=== PATIENT | male | born 1950 | race Asian ===

== ENCOUNTER 2018-05-30 14:03 | Outpatient (CLI) | payer MEDICARE ==
[~2018-05-30] VITALS: Ht 165.1 cm; Wt 54.0 kg
[2018-05-30] MEDS ORDERED: TAMSULOSIN HCL0.4 MG ORAL (15:11)
[2018-05-30 15:12] VITALS: BP 101/63
--- NOTE | 2018-05-31 15:52 | GI Initial Consult Note ---
History of Present Illness General Date patient seen: May 31, 2018 Time patient seen: 15:48 Referring physician: KENDALL Reason for Consultation: SCREENING COLONOSCOPY Present Illness HPI 67 year old male presents today for routine screening colonoscopy. He denies any GI symptoms; denies abdominal pain, N/V/D or constipation. Denies any unintentional weight loss or changes in dietary habits. No signs of abuse or neglect. Patient is not fall risk. Home Meds Reported Medications Tamsulosin Hcl (TAMSULOSIN HCL*) 0.4 Mg Cap.er.24h, 0.4 MG ORAL BEDTIME, CAP 05/30/18 Med list reviewed/reconciled: Yes Allergies: Coded Allergies: No Known Allergies (Unverified , 05/30/18) Patient History History Provided By: Patient, Medical Record PMH Narrative BPH Past Surgical History: Rt Carpal Tunnel Family History Narrative Mother, Brother >> DM Social History: Denies: smoking, alcohol use, drug use, other Review of Systems All Other Systems: negative except mentioned in HPI Physical Exam Vital Signs Date Time Temp Pulse Resp B/P (MAP) Pulse Ox O2 Delivery O2 Flow Rate FiO2 05/30/18 15:12 98.4 97 18 101/63 98 Sp02 EP Interpretation: reviewed, normal General Appearance: well appearing, no apparent distress, alert Head: normocephalic EENT: PERRL/EOMI, normal ENT inspection Neck: supple Respiratory: normal breath sounds, no respiratory distress Cardiovascular: normal rate Gastrointestinal: normal inspection, non tender, soft, normal bowel sounds, non -distended Rectal: deferred Genitourinary: deferred Musculoskeletal: normal inspection, back normal Neurologic: normal inspection, alert, oriented x3, responsive Psychiatric: normal inspection, judgement/insight normal, memory normal Skin: normal inspection, normal color, no rash, warm/dry, palpation normal, well hydrated Lymphatic: normal inspection, no adenopathy GI: Plan Problems: (1) Colonoscopy planned (2) BPH (benign prostatic hyperplasia) Plan Screening colonoscopy to be scheduled pending PA, will contact patient. - CLD & (Nulytely/Suprep/Movi-Prep) prep instructions given and acknowledged by patient. - NPO @ ME day prior procedure explained. will follow with additional recs post procedure Discussed with Dr. Ruiz. Thank you for this patient referral, we will follow. The patient was seen and examined at bedside and all new and available data was reviewed in the patients chart. I agree with the above findings, impression and plan. (Patient seen earlier today. Signature stamp does not reflect patient encounter time.). - [facility] [place] [employer] May 31, 2018 15:52
== END 2018-05-30 14:33 | disposition home or self-care (01) ==
LOC: PAN 14:03
DX: Z12.11 Encounter for screening for malignant neoplasm of colon (principal); N40.0 Benign prostatic hyperplasia without lower urinary tract symptoms
CPT/HCPCS: 99202

== ENCOUNTER 2018-07-03 08:10 | Day surgery (SDC) | payer MEDICARE, BC ==
[2018-07-03] VITALS (8 sets, daily range): BP systolic 103–128; BP diastolic 73–89
[~2018-07-03] VITALS: Ht 167.6 cm; Wt 53.1 kg
--- NOTE | 2018-07-03 06:48 | Anethesia Preoperative Eval ---
Anesthesia Pre-op PMH/ROS General Date of Evaluation: Jul 03, 2018 Time of Evaluation: 06:47 Anesthesiologist: boy ASA Score: ASA 2 Mallampati Score Class I : Soft palate, uvula, fauces, pillars visible Class II: Soft palate, uvula, fauces visible Class III: Soft palate, base of uvula visible Class IV: Only hard plate visible Mallampati Classification: Class II Surgeon: sujey Diagnosis: colon screening Surgical Procedure: colonoscopy Anesthesia History: none Social History: smoking Family History: no anesthesia problems Allergies: Coded Allergies: No Known Allergies (Unverified , 05/30/18) Medications: see eMAR Patient NPO?: Yes Past Medical History Gastrointestinal/Genitourinary: Reports: other - bph Neurologic/Psychiatric: Reports: depression/anxiety HEENT: Reports: other - decreased visual acuity Musculoskeletal/Integumentary: Reports: OA Anesthesia Pre-op Phys. Exam Physician Exam Last Vital Signs Date Time Temp Pulse Resp B/P (MAP) Pulse Ox O2 Delivery O2 Flow Rate FiO2 07/03/18 09:15 Room Air 07/03/18 09:10 97.7 86 20 124/73 99 Constitutional: NAD Neurologic: CN 2-12 intact Cardiovascular: RRR Respiratory: CTA Gastrointestinal: S/NT/ND Airway Exam Mallampati Score: Class II MO: full Neck: flexible TMD: 2fb ROM: limited Teeth: intact Anesthesia Pre-op A/P Studies Pre-op Studies: EKG - nsr Risk Assessment & Plan Assessment: asa2 Plan: mac Status Change Before Surgery: No Pre-Antibiotics Drug: Nida Soliz MD Jul 03, 2018 06:48
[~2018-07-03 08:10] MED LIST: Atropine Inj 1mg/10ml Syr IV PRN; DiphenhydrAMINE 50mg/ml Inj IVP PRN; Midazolam 2mg/2ml Inj IVP PRN; TAMSULOSIN HCL0.4 MG ORAL; fentaNYL 100 mcg/2 mL IV PRN
[2018-07-03] MEDS ORDERED: TAMSULOSIN HCL0.4 MG ORAL (09:19)
[2018-07-03] MEDS ORDERED: Propofol 200mg/20ml IV ONE (09:30)
[2018-07-03] MEDS ORDERED: Lidocaine 1% MPF 10mg/ml 5ml ONE (09:30)
--- NOTE | 2018-07-03 10:19 | Pre-Procedure Note/Attestation ---
Pre-Procedure Note/Attestation Complete Prior to Procedure Planned Procedure: not applicable Procedure Narrative: colonoscopy Indications for Procedure Pre-Operative Diagnosis: screening Attestation I attest that I discussed the nature of the procedure; its benefits; risks and complications; and alternatives (and the risks and benefits of such alternatives ), prior to the procedure, with the patient (or the patient's legal client support representative). I attest that, if there was a reasonable possibility of needing a blood transfusion, the patient (or the patient's legal client support representative) was given the [facility] standardized written summary, pursuant to the David Bystrom Blood Safety Act ([place] Health and Safety Code # 1645, as amended). I attest that I re-evaluated the patient just prior to the surgery and that there has been no change in the patient's H&P, except as documented below: Pino Ruiz MD Jul 03, 2018 10:18
--- NOTE | 2018-07-03 10:19 | Short Stay Surgery H&P ---
History of Present Illness History of Present Illness Chief Complaint see recent office note HPI Brian Madrid is a 67 year old male who was admitted on for Colon Screening Patient History Allergies: Coded Allergies: No Known Allergies (Unverified , 05/30/18) Medication History Scheduled Tamsulosin Hcl (Tamsulosin Hcl*), 0.4 MG ORAL BEDTIME, (Reported) Physical Exam Vital Signs Last Vital Signs Date Time Temp Pulse Resp B/P (MAP) Pulse Ox O2 Delivery O2 Flow Rate FiO2 07/03/18 09:15 Room Air 07/03/18 09:10 97.7 86 20 124/73 99 Plan Attestation Are the patient's medical conditions optimized for surgery? Pino Ruiz MD Jul 03, 2018 10:19
--- NOTE | 2018-07-03 10:20 | Endoscopy Procedure Note ---
Endoscopy Procedure Note General Indication for Procedure: screening Procedures Performed: colonoscopy Operative Findings/Diagnosis: hemorhoids Specimen: none Pt Tolerated Procedure Well: Yes Estimated Blood Loss: none Anesthesia Anesthesiologist: boy Anesthesia: MAC Inserted Devices Implant(s) used?: No Quality Quality of Bowel Preparation: Excellent Did scope reach the cecum?: Yes Was there any complications?: No GI Core Measures 50 yrs or older w/o bx or poly: No 10yrs. F/U not recommended: Yes If not recommended, why?: Above average risk 10 yrs. F/U needed: Yes 18 years or older w/prev. colo: No Pino Ruiz MD Jul 03, 2018 10:20
--- NOTE | 2018-07-03 10:37 | Immediate Post-Op Evaluation ---
Immediate Post-Op Evalulation Immediate Post-Op Evalulation Procedure: colonoscopy Date of Evaluation: Jul 03, 2018 Time of Evaluation: 10:37 IV Fluids: 150ml 0.9ns Blood Products: none Estimated Blood Loss: negligible Blood Pressure Systolic: 103 Blood Pressure Diastolic: 75 Pulse Rate: 80 Respiratory Rate: 18 O2 Sat by Pulse Oximetry: 100 Temperature (Fahrenheit): 97.9 Pain Score (1-10): 0 Nausea: No Vomiting: No Complications none Patient Status: awake, reacts, patent Hydration Status: adequate Drug: Nida Soliz MD Jul 03, 2018 10:37
--- NOTE | 2018-07-03 10:39 | 48 Hour Post Anesthesia Eval ---
Post Anesthesia Evaluation Procedure: colonoscopy Date of Evaluation: Jul 03, 2018 Time of Evaluation: 10:39 Blood Pressure Systolic: 107 0: 75 Pulse Rate: 80 Respiratory Rate: 18 Temperature (Fahrenheit): 97.9 O2 Sat by Pulse Oximetry: 100 Airway: patent Nausea: No Vomiting: No Pain Intensity: 0 Hydration Status: adequate Cardiopulmonary Status: stable Mental Status/LOC: patient returned to baseline Post-Anesthesia Complications: none Follow-up care needed: N/A Nida London MD Jul 03, 2018 10:39
--- NOTE | 2018-07-03 16:00 | Procedure Note ---
DATE OF PROCEDURE: 07/03/2018 SURGEON: Pino Ruiz M.D. PROCEDURE: Colonoscopy ANESTHESIA: Per Dr. Perez. INSTRUMENT: Olympus adult flexible colonoscope. INDICATION: Screening colonoscopy. REASON FOR PROCEDURE: The procedure, risks, benefits, and possible consequences, including hemorrhage, aspiration, perforation and infection, and alternative treatments, were explained to the patient/legal guardian by Dr. Pino Ruiz and the patient/legal guardian understood and accepted these risks. DESCRIPTION OF PROCEDURE: After informed consent was obtained and the patient was adequately sedated, first rectal exam was performed, which was positive for external hemorrhoids. Then, the scope was advanced from the rectum into the cecum documented by appendiceal orifice, ileocecal valve, and right upper quadrant palpation. Quality of prep was very good. The patient had normal colonoscopy examination. No obvious mass, polyp, or any pathology was seen. Retroflexion of rectum showed evidence of medium-sized nonbleeding internal hemorrhoids. The patient tolerated procedure very well without complication. SUMMARY OF FINDINGS: Internal hemorrhoids, otherwise normal colonoscopy examination. I want to thank Dr. Larios for this kind referral. Pino Ruiz M.D. DR: Alaina JOB#: [id number] CC: Dr. Larios
== END 2018-07-03 11:50 | disposition home or self-care (01) ==
LOC: GAS 08:10
DX: Z12.11 Encounter for screening for malignant neoplasm of colon (principal); K64.4 Residual hemorrhoidal skin tags; K64.8 Other hemorrhoids; N40.0 Benign prostatic hyperplasia without lower urinary tract symptoms; F32.9 Major depressive disorder, single episode, unspecified; F41.9 Anxiety disorder, unspecified; M19.90 Unspecified osteoarthritis, unspecified site; F17.200 Nicotine dependence, unspecified, uncomplicated
CPT/HCPCS: 82962; 93005; G0121; J2704; 94003; 94150

== ENCOUNTER 2018-08-05 14:08 | Outpatient (CLI) | payer MEDICARE, BC ==
[~2018-08-05 14:08] MED LIST changes: -Atropine Inj 1mg/10ml Syr IV PRN; -DiphenhydrAMINE 50mg/ml Inj IVP PRN; -Midazolam 2mg/2ml Inj IVP PRN; -fentaNYL 100 mcg/2 mL IV PRN
[2018-08-05 14:30] VITALS: BP 123/71
--- NOTE | 2018-08-05 14:54 | GI Progress Note ---
Assessment/Plan Problems: (1) Hemorrhoids ICD Codes: K64.9 - Unspecified hemorrhoids SNOMED: [id number] Status: stable Status Narrative Seen with Dr. Ruiz. Assessment/Plan Colonoscopy reviewed with patient > noted mainly for hemorrhoids, otherwise unremarkable. Repeat colonoscopy in 5 years RTC prn The patient was seen and examined at bedside and all new and available data was reviewed in the patients chart. I agree with the above findings, impression and plan. (Patient seen earlier today. Signature stamp does not reflect patient encounter time.). - Pino Ruiz MD Subjective Gastrointestinal/Abdominal: Reports: no symptoms Objective Abdominal pain temperature 98.1 Blood pressure 123/77 Pulse 73 100% room air General Appearance: WD/WN, no apparent distress, alert Cardiovascular: normal rate Respiratory/Chest: normal breath sounds, no respiratory distress Abdominal Exam: normal bowel sounds, non tender, soft Extremities: normal range of motion, non-tender Fadia Knapp NP Aug 05, 2018 14:54
== END 2018-08-05 14:38 | disposition home or self-care (01) ==
LOC: PAN 14:08
DX: K64.9 Unspecified hemorrhoids (principal)